=== PATIENT | male | born 1945 | race Caucasian/White ===

== ENCOUNTER 2022-04-17 23:00 | Emergency (ER) | payer MEDICARE ==
[~2022-04-17] VITALS: Ht 175.3 cm; Wt 80.2 kg
[2022-04-18 00:59] LABS: BASOPHILS % 0.5 % (0.0-2.0); HEMATOCRIT. 42.1 % (42.0-52.0); HEMOGLOBIN. 14.5 g/dL (14.0-18.0); LYMPHOCYTES % 40.6 % (20.0-50.0); MEAN CORPUSCULAR HEMOGLOBIN 32.7 pg (28.0-32.0); MEAN CORPUSCULAR VOLUME 95.1 fL (80.0-94.0); MEAN PLATELET VOLUME 7.6 fl (7.4-10.4); NEUTROPHILS % 46.9 % (40.0-76.0); PLATELET 189 x1000/uL (130-400); RED BLOOD CELL COUNT 4.42 mill/uL (4.7-6.1); RED CELL DISTRIBUTION WIDTH 13.5 % (11.6-14.6)
[2022-04-18 01:06] LABS: CHLORIDE 105 mEq/L (98-107)
[2022-04-18] MEDS ORDERED: LIDOCAINE HCL 1% 20ML VIAL (Pyxis) INJ INFIL ONE (01:30)
[2022-04-18] MEDS ORDERED: LIDOCAINE HCL 1% 10 MG/ML 10ML VIAL IJ NR (05:15)
[2022-04-18 06:13] VITALS: BP 137/69
[2022-04-18] MEDS ORDERED: IOHEXOL-300 100 ML BOTTLE ONE (06:52)
== END 2022-04-18 06:16 | disposition home or self-care (01) ==
LOC: ER 23:00
DX: L02.01 Cutaneous abscess of face (principal)
CPT/HCPCS: 10060; 36415; 70487; 80053; 85025; 99285; J3490; Q9967